=== PATIENT | female | born 1980 | race Caucasian/White ===

== ENCOUNTER → 2017-03-20 | Outpatient (CLI) | payer BC ==
[~2017-03-20] MED LIST: DEXT20TA2 PO; MULT1CAP15 PO
[2017-03-20 09:42] LABS: BASO % 1 % (0-3); EOS # 0.1 x10^3/uL (0.0-0.7); EOS % 3 % (0-3); HEMATOCRIT 38.8 % (36.0-47.0); LYMPH # 1.6 x10^3/uL (1.0-4.8); LYMPH % 37 % (24-48); MEAN CORPUSCULAR HEMOGLOBIN 29 pg (25-35); MEAN CORPUSCULAR HGB CONC 34 g/dL (31-37); MEAN CORPUSCULAR VOLUME 87 fL (79-100); MONO # 0.2 x10^3/uL (0.0-1.1); MONO % 5 % (0-9); NEUT # 2.3 x10^3uL (1.8-7.7); NEUT % 54 % (31-73); PLATELET COUNT 201 x10^3/uL (140-400); RED BLOOD COUNT 4.44 x10^6/uL (3.50-5.40); RED CELL DISTRIBUTION WIDTH 12.9 % (11.5-14.5); WHITE BLOOD COUNT 4.3 x10^3/uL (4.0-11.0)
[2017-03-20 09:55] LABS: ALBUMIN/GLOBULIN RATIO 1.2 (1.0-1.7); CALCIUM 8.9 mg/dL (8.5-10.1); CREATININE 0.7 mg/dL (0.6-1.0); GFR 93.6; POTASSIUM 4.1 mmol/L (3.5-5.1); TOTAL BILIRUBIN 0.4 mg/dL (0.2-1.0); TOTAL PROTEIN 7.4 g/dL (6.4-8.2)
--- NOTE | 2017-03-20 10:24 | RAD ---
Pelvic ultrasound, 03/20/2017: History: Pelvic pain Transabdominal and transvaginal scans were obtained. The uterus measures 9.9 x 5.9 x 4.7 cm. An echogenic structure compatible with patient's known IUD is present centrally in the uterus. Small nabothian cysts are present. The uterus is otherwise unremarkable. The ovaries are of normal size. They contain small follicular cysts. There is blood flow in the ovaries. No adnexal mass is seen. No free fluid is evident in the pelvis. IMPRESSION: 1. An IUD is present centrally in the uterus. 2. The pelvic ultrasound is otherwise unremarkable.
[2017-03-20 14:19] LABS: THYROID STIM HORMONE (TSH) 0.491 uIU/mL (0.358-3.740)
[2017-03-20 18:11] LABS: DHEA SO4 83.3 ug/dL (57.3-279.2); FSH 10.1 mIU/mL (.); LUTEINIZING HORMONE 16.6 mIU/mL (.); PROLACTIN 16.6 ng/mL (4.8-23.3)
[2017-03-21 06:09] LABS: INSULIN LEVEL 8.3 uIU/mL (2.6-24.9)
[2017-03-21 13:29] LABS: CA 125 14.7 U/mL (0.0-38.1)
== END | disposition home or self-care (01) ==
LOC: US 08:38
PROVIDERS: ATTEND Obstetrics & Gynecology
DX: N92.6 Irregular menstruation, unspecified (principal); N88.8 Other specified noninflammatory disorders of cervix uteri; N83.201 Unspecified ovarian cyst, right side; Z79.899 Other long term (current) drug therapy
CPT/HCPCS: 36415; 76830; 76856; 80053; 80061; 82627; 83001; 83002; 83036; 83525; 84146; 84402; 84403; 84443; 85027; 86304